=== PATIENT | male | born 1960 | race Two or more races ===

== ENCOUNTER 2024-08-21 18:01 | Emergency (ER) | payer OTHER ==
[~2024-08-21] VITALS: Ht 185.4 cm; Wt 88.5 kg
[2024-08-21] MEDS ORDERED: COZAAR100 MG PO (18:13)
[2024-08-21] MEDS ORDERED: ACETAMINOPHEN 500 MG GEL..CAP PO ONE ×2 (20:30→20:46)
[2024-08-21 20:49] LABS: HEMATOCRIT 48.9 % (39.0-48.0); HEMOGLOBIN 16.6 g/dL (13-16.00); MEAN CELL VOLUME 90.1 fL (80.0-100.00); MEAN CORPUSCULAR HEMOGLOBIN 30.5 pg (27.00-32.0); MEAN CORPUSCULAR HGB CONC 33.9 g/dl (32.0-36.0); PLATELET COUNT 203 K/uL (150-450); RED BLOOD COUNT 5.42 M/uL (4.00-6.00); RED CELL DISTRIBUTION WIDTH 13.6 % (11.5-14.5)
[2024-08-21 21:18] LABS: ALBUMIN 3.7 gm/dL (3.4-5.0); BILIRUBIN TOTAL 1.85 mg/dL (0.3-1.2); CALCIUM 8.5 mg/dL (8.5-10.1); CREATININE SERUM 0.92 mg/dL (0.70-1.30); GFR 83.09; GLOBULINA 3.8 G/DL (2.4-3.5); POTASSIUM 3.77 mEq/L (3.5-5.1); TOTAL PROTEIN 7.5 gm/dL (6.4-8.2)
[2024-08-21] MEDS ORDERED: BACITRACIN-NEOMYCIN-POLYMYXIN 0.9 GM PACKET TOP ONE (22:20)
[2024-08-21] MEDS ORDERED: ZOFRAN8 MG PO (22:43)
[2024-08-21] MEDS ORDERED: PEPCID AC20 MG PO (22:43)
[2024-08-21] MEDS ORDERED: CIPRO500 MG PO (22:43)
== END 2024-08-21 22:49 | disposition home or self-care (01) ==
LOC: ER 18:04
PROVIDERS: Preventive Medicine Public Health & General Preventive Medicine
DX: S09.8XXA Other specified injuries of head, initial encounter (principal); W19.XXXA Unspecified fall, initial encounter; Y93.89 Activity, other specified; Y92.098 Other place in other non-institutional residence as the place of occurrence of the external cause; Y99.8 Other external cause status; R55 Syncope and collapse; I10 Essential (primary) hypertension; Z91.013 Allergy to seafood